=== PATIENT | male | born 1965 | race Caucasian/White ===

== ENCOUNTER 2019-11-01 02:50 | Emergency (ER) | payer MEDICAID, OTHER ==
[~2019-11-01] VITALS: Ht 167.6 cm; Wt 59.0 kg
[2019-11-01] MEDS ORDERED: PHENOBARBITAL 60MG TABLET PO ONE (03:45)
[2019-11-01 04:13] LABS: BASOPHILS % 0.8 % (0.0-2.0); EOSINOPHILS % 0.7 % (0.0-5.0); HEMATOCRIT. 39.8 % (42.0-52.0); HEMOGLOBIN. 13.5 g/dL (14.0-18.0); LYMPHOCYTES % 20.8 % (20.0-50.0); MEAN CORPUSCULAR HEMOGLOBIN 32.3 pg (28.0-32.0); MEAN PLATELET VOLUME 8.8 fl (7.4-10.4); MONOCYTES % 11.4 % (2.0-8.0); NEUTROPHILS % 66.3 % (40.0-76.0); PLATELET 141 x1000/uL (130-400); RED BLOOD CELL COUNT 4.19 mill/uL (4.7-6.1); RED CELL DISTRIBUTION WIDTH 12.4 % (11.6-14.6)
[2019-11-01 04:21] LABS: CHLORIDE 107 mEq/L (98-107)
[2019-11-01 04:25] LABS: ETHANOL BLOOD < 10 mg/dL
[2019-11-01 04:30] LABS: CREATINE KINASE 145 IU/L (39-308)
[2019-11-01 05:55] VITALS: BP 130/70
== END 2019-11-01 06:22 | disposition home or self-care (01) ==
LOC: ER 03:16
DX: F10.239 Alcohol dependence with withdrawal, unspecified (principal); Y90.0 Blood alcohol level of less than 20 mg/100 ml; I10 Essential (primary) hypertension; E78.00 Pure hypercholesterolemia, unspecified; Z98.890 Other specified postprocedural states; Z85.9 Personal history of malignant neoplasm, unspecified
CPT/HCPCS: 36415; 80053; 80320; 82140; 82550; 84443; 85025; 99283; G0480

== ENCOUNTER 2023-03-23 16:34 | Emergency (ER) | payer MEDICAID, OTHER ==
[~2023-03-23] VITALS: Ht 167.6 cm; Wt 68.0 kg
[2023-03-23 16:42] VITALS: O2SAT 99
[2023-03-23] MEDS ORDERED: TETANUS, DIPHTHERIA, PERTUSSIS VAC/PF 0.5ML (>10YR OLD) IM ONE (17:00)
[2023-03-23] MEDS ORDERED: BACITRACIN ZINC OINT UDPKT TOP ONE (17:00)
[2023-03-23] MEDS ORDERED: IBUPROFEN 600MG TABLET PO ONE (17:00)
[2023-03-23] MEDS ORDERED: LIDOCAINE HCL/PF 1% 10 MG/ML 5ML VIAL INFIL ONE (17:00)
[2023-03-23] MEDS ORDERED: CEPH500C2 PO (18:35)
[2023-03-23] MEDS ORDERED: IBUP-2029 PO (18:35)
[2023-03-23 19:10] VITALS: BP 124/80; PULSE 62; RESP 18; TEMP 98.8
== END 2023-03-23 19:11 | disposition home or self-care (01) ==
LOC: ER 16:34
DX: S61.412A Laceration without foreign body of left hand, initial encounter (principal); E78.00 Pure hypercholesterolemia, unspecified; W45.8XXA Other foreign body or object entering through skin, initial encounter; Y93.89 Activity, other specified; Y92.89 Other specified places as the place of occurrence of the external cause; Y99.8 Other external cause status
CPT/HCPCS: 73140; 90715; 12001; 90471; J3490; Z7610 ×2